=== PATIENT | female | born 1995 | race Caucasian/White ===

== ENCOUNTER → 2017-04-06 | Outpatient (CLI) | payer BC ==
[~2017-04-06] MED LIST: TAYTULLA 1 MG-1 EACH PO
--- NOTE | ~2017-04-06 | CR156 ---
[facility] A Service of [facility] & [facility] RADIOLOGY TEXT RESULTS PATIENT: URIEL ROY LOCATION: [facility] : [birth year] UNIT #: [id number] AGE: [address]: YOLIS EDWARDS APRN SEX: F ORDER DR: [id number] [facility] [address] [place], [place] [address] [id number] O MR#: [id number] Acc #: [id number] NAME: URIEL ROY : 1995 SEX: F STUDY DATE/TIME: 04/06/2017 17:40 UNIT: [facility] ROOM: STUDY DESCRIPTION: CR Humerus Min 2 View Lt Attending Physician: Yolis Edwards Aprn Ordering Physician: Staff Doctor Not On Primary Care Physician: Ana Linda M.D. MEDICAL IMAGING REPORT This report is preliminary unless electronic signature is present EXAM Left humerus 2 views HISTORY Implanted contraceptive broke off during removal today. FINDINGS 2 views left humerus demonstrate 3.5 cm linear implanted contraceptive in the superficial margin of the medial mid left upper arm. The underlying humerus is normal. Dictated by... Charles Troy M.D. THIS IS AN ELECTRONICALLY VERIFIED REPORT Charles Troy M.D. at 04/09/2017 10:18 AM ANNIE/pascale TD: 04/07/2017 02:36 JOB #: [id number] MEDICAL IMAGING REPORT Page 1 of 1 COPY
== END | disposition home or self-care (01) ==
LOC: CRAD 17:03
DX: T84.418A Breakdown (mechanical) of other internal orthopedic devices, implants and grafts, initial encounter (principal)
CPT/HCPCS: 73060; 73090

== ENCOUNTER → 2017-04-17 | Outpatient (CLI) | payer BC ==
--- NOTE | ~2017-04-17 | XA120 ---
[facility] A Service of [facility] & [facility] RADIOLOGY TEXT RESULTS PATIENT: URIEL ROY LOCATION: [facility] : [birth year] UNIT #: [id number] AGE: [address]: Lianne Guevara MD SEX: F ORDER DR: [id number] [facility]. [place], [place] [address] [id number] O MR#: [id number] Acc #: [id number] NAME: URIEL ROY : 1995 SEX: F STUDY DATE/TIME: 04/17/2017 9:58 UNIT: [facility] ROOM: STUDY DESCRIPTION: XA Foreign Body Retreival Attending Physician: Lianne Guevara M.D. Referring Physician: Lianne Guevara M.D. Ordering Physician: Lianne Guevara M.D. Primary Care Physician: Lianne Guevara M.D. MEDICAL IMAGING REPORT This report is preliminary unless electronic signature is present EXAM Foreign body removal under ultrasound and fluoroscopy. HISTORY SUPPLIED control device implanted and broken off under skin. Ms. Roy is a 21-year-old female who has had implantation of a long acting control device in her medial aspect of her upper arm. Attempts at removal at the office were unsuccessful and she is referred for cut-down and removal. Procedure, attendant risks and options were discussed with the patient. She understands and wishes to proceed. Informed written consent was obtained. PROCEDURE The area was prepped with chlorhexidine solution and draped sterilely with maximal sterile barrier technique including drapes, gowns, gloves, masks, hats and shoe covers while utilized. The area was palpated and the abnormality is easily palpable under the skin. Ultrasound was utilized and the area was relatively hypoechoic and linear in fashion. Fluoroscopy was utilized but it is radiolucent and not visible. Skin was anesthetized with an 1% Xylocaine and a 1 cm incision was made over the foreign body. This was bluntly dissected free and removed. The deep fascia was closed with 3-0 Vicryl interrupted sutures and the skin closed with 4-0 Monocryl. Dermabond was placed over the site and the procedure was very well tolerated. The patient did receive 1 gm of Kefzol for antibiotic prophylaxis. CONCLUSION Successful removal of the 2 cm foreign body within the soft tissues over STS. [facility] A Service of [facility] & [facility] RADIOLOGY TEXT RESULTS PATIENT: URIEL ROY [id number] [birth year] UNIT #: [id number] AGE: [address]: Lianne Guevara MD SEX: F ORDER DR: the left humerus. Total fluoroscopy time, 0.01 minutes. A single spot radiograph was saved for documentation purposes. Dictated by... Adam Cronin M.D. THIS IS AN ELECTRONICALLY VERIFIED REPORT Adam Cronin M.D. at 04/17/2017 5:13 PM ROSA/pearl TD: 04/17/2017 15:47 JOB #: [id number] MEDICAL IMAGING REPORT Page 1 of 1 COPY
[2017-04-17 08:51] LABS: HEMATOCRIT 38.3 % (35.0-45.0); HEMOGLOBIN 12.4 gm/dL (12.0-16.0); MEAN CELL VOLUME 79.2 FL (83-96); MEAN CORPUSCULAR HEMOGLOBIN 25.7 PG (28-34); MEAN CORPUSCULAR HGB CONC 32.4 g/dL (30-36); MEAN PLATELET VOLUME 8.4 FL (6.5-11.5); RED BLOOD COUNT 4.83 X10e (3.90-5.30); WHITE BLOOD COUNT 12.2 X10e3 (4.0-10.5)
[2017-04-17 09:12] LABS: PROTHROMBIN TIME (PATIENT) 10.5 SECONDS (9.6-11.5)
== END | disposition home or self-care (01) ==
LOC: CIVR 07:41
PROVIDERS: Obstetrics & Gynecology Gynecology
DX: T85.618A Breakdown (mechanical) of other specified internal prosthetic devices, implants and grafts, initial encounter (principal); J45.909 Unspecified asthma, uncomplicated
CPT/HCPCS: 36415; 76000; 85027; 85610; J0690; J2250; J3010